=== PATIENT | male | born 1950 | race Caucasian/White ===

== ENCOUNTER → 2019-06-06 | Outpatient (REF) | LOC: M LAB LCGH 15:32 | PROVIDERS: ATTEND Surgery | DX: L90.5 Scar conditions and fibrosis of skin (principal) ==

== ENCOUNTER → 2022-08-24 | Outpatient (CLI) | payer MEDICARE | LOC: M RAD 16:28 | PROVIDERS: ATTEND Orthopaedic Surgery | DX: M79.604 Pain in right leg (principal) ==

== ENCOUNTER → 2022-09-30 | Outpatient (REF) ==
[2022-09-30 14:41] LABS: COLLAGEN EPINEPHRINE 111 SECONDS (74-162)
== END ==
LOC: M LAB REF 13:25
PROVIDERS: ATTEND Physical Medicine & Rehabilitation
DX: Z79.899 Other long term (current) drug therapy (principal)

== ENCOUNTER → 2024-03-28 | Outpatient (REF) | payer MEDICARE, OTHER ==
[2024-03-28 18:17] LABS: APPEARANCE, URINE CLEAR (CLEAR); BACTERIA, URINE AUTO NEGATIVE (NEGATIVE); BILIRUBIN, URINE AUTO NEGATIVE (NEGATIVE); BLOOD, URINE BLOOD NEGATIVE (NEGATIVE); COLOR, URINE YELLOW (YELLOW); GLUCOSE, URINE (UA) AUTO NEGATIVE (NEGATIVE); KETONE, URINE AUTO NEGATIVE (NEGATIVE); LEUKOCYTE ESTERASE, URINE AUTO NEGATIVE (NEGATIVE); MUCUS, URINE SMALL (NEGATIVE); NITRITE, URINE AUTO NEGATIVE (NEGATIVE); PROTEIN, URINE AUTO NEGATIVE (NEGATIVE); RBC, URINE AUTO 0 /HPF (0-3); SQUAMOUS EPITHELIAL CELL UR AU 0 /HPF (0-6); UROBILINOGEN, URINE AUTO 0.2 mg/dL (0.0-2.0); WBC, URINE AUTO 0 /HPF (0-3)
== END ==
LOC: M SMT 17:10
PROVIDERS: ATTEND Urology
DX: N40.1 Benign prostatic hyperplasia with lower urinary tract symptoms (principal)

== ENCOUNTER → 2024-12-26 | Outpatient (REF) ==
[2024-12-26 17:05] LABS: COLLAGEN EPINEPHRINE 116 SECONDS (74-162)
== END ==
LOC: M LAB REF 09:35
DX: Z00.00 Encounter for general adult medical examination without abnormal findings (principal)